=== PATIENT | male | born 1945 | race Hispanic/Latino ===

== ENCOUNTER 2019-03-15 09:27 | Outpatient (CLI) | payer MEDICARE, OTHER | END 2019-03-15 09:28 | disposition home or self-care (01) | LOC: RAD 09:27 ==

== ENCOUNTER 2019-03-28 17:00 | Outpatient (CLI) | payer MEDICARE, OTHER | END 2019-03-28 17:01 | disposition home or self-care (01) | LOC: RAD 17:01 ==